=== PATIENT | male | born 1950 | race African-American/Black ===

== ENCOUNTER → 2022-09-06 | Emergency (ER) ==
[~2022-09-06] MED LIST: LIDOCAINE HCL 1% LOCAL INJ 20 ML VIAL ONE; SODIUM CHLORIDE 0.9% 250ML 250 ML ONE
== END | disposition home or self-care (01) ==
LOC: ER 15:26
DX: N19 Unspecified kidney failure (principal)
CPT/HCPCS: J2001; J7050